=== PATIENT | male | born 1965 | race Caucasian/White ===

== ENCOUNTER 2017-10-20 17:32 | Emergency (ER) | payer OTHER ==
[~2017-10-20] VITALS: Ht 203.2 cm; Wt 145.2 kg
[2017-10-20] MEDS ORDERED: UNICOMPLEX M TA1 TA1 PO (18:21)
[2017-10-20] MEDS ORDERED: PROBIOTIC1 EAC1 PO (18:21)
[2017-10-20] MEDS ORDERED: NAPROSYN500 MG PO (19:45)
[2017-10-20] MEDS ORDERED: HYDROCODONE-AP1 EAC6 PO (19:45)
== END 2017-10-20 20:17 | disposition home or self-care (01) ==
LOC: ER 17:32
DX: I80.02 Phlebitis and thrombophlebitis of superficial vessels of left lower extremity (principal); F10.99 Alcohol use, unspecified with unspecified alcohol-induced disorder